=== PATIENT | female | born 1990 | race Caucasian/White ===

== ENCOUNTER 2019-10-27 15:24 | Outpatient (REF) | payer MEDICAID, SELFPAY ==
[2019-10-27 17:22] LABS: HCT 38.7 % (36.0-46.0); HGB 12.9 g/dL (11.2-15.7); MCH 31.1 pg (27.0-33.0); MCHC 33.3 % (32.0-36.0); MCV 93.3 fL (80-95); Platelet Count 237 10^3/uL (130-400); RBC 4.15 10^6/uL (3.93-5.22); RDW 11.1 % (11.7-14.6); RDW-SD 37.4 fL; WBC 5.09 10^3/uL (4.4-10.8)
[2019-10-27 17:44] LABS: ALT 19 U/L (14-59); AST 16 U/L (15-37); Albumin 4.2 g/dL (3.4-5.0); Alkaline Phosphatase 53 U/L (46-116); Anion Gap 9.5 mmol/L (3-11); BUN 15 mg/dL (7-18); Bilirubin, Total 0.6 mg/dL (0.2-1.0); CO2 26.5 mmol/L (21.0-32.0); CREATININE 1.01 mg/dL (0.55-1.02); Chloride 102 mmol/L (98-107); Glucose 90 mg/dL (74-106); Potassium 3.7 mmol/L (3.5-5.1); Sodium 138 mmol/L (136-145); TSH (W/Ref FT4) 1.74 uIU/mL (0.36-3.74)
== END 2019-10-27 15:44 ==
LOC: NCHCN 15:24
PROVIDERS: PCP Nurse Practitioner Family; Visit Provider Nurse Practitioner Family
DX: R55 Syncope and collapse (principal); R53.83 Other fatigue
CPT/HCPCS: 80053; 85027; 84443

== ENCOUNTER 2020-01-11 10:54 | Outpatient (CLI) | payer MEDICAID, SELFPAY ==
--- NOTE | 2020-02-02 08:32 | W.ZIOMONITOR ---
Date of service: 02/02/20 Time of Service: 08:32 [employer] Day [employer] Spanish [employer] Referring Provider:: Hien Low Indications:: Near syncope Note: This is a 14-day air sampling and monitoring reportedly ordered for symptoms of near syncope Rhythm throughout was sinus. Average heart rate was 78 bpm. Minimum was 49, maximum 159 There were no ventricular dysrhythmias There were rare atrial premature beats There was no atrial fibrillation, no pauses greater than 3 seconds, no supraventricular tachycardia Multiple patient events corresponded to sinus rhythm and sinus tachycardia
== END 2020-01-11 11:14 ==
PROVIDERS: PCP Nurse Practitioner Family; Visit Provider Nurse Practitioner
DX: R55 Syncope and collapse (principal)
CPT/HCPCS: 0296T

== ENCOUNTER 2020-01-29 16:19 | Outpatient (REF) | payer MEDICAID, SELFPAY ==
[2020-01-29 20:09] LABS: Abs Immature Grans 0.01 10^3/uL (0.0-0.06); Absolute Basophil Count 0.04 10^3/uL (0.0-0.2); Absolute Eosinophil Count 0.02 10^3/uL (0.0-0.7); Absolute Monocyte Count 0.52 10^3/uL (0.1-0.8); Absolute Neutrophil Count 4.24 10^3/uL (1.2-6.7); Basophils % 0.6; Eosinophils % 0.3; HCT 39.1 % (36.0-46.0); HGB 13.4 g/dL (11.2-15.7); Immature Grans % 0.2; Lymphocytes % 22.5; MCH 31.8 pg (27.0-33.0); MCHC 34.3 % (32.0-36.0); MCV 92.9 fL (80-95); MPV 11.4 fL (8.0-11.0); Monocytes % 8.3; Neutrophils % 68.1; Nucleated RBC 0 %; Platelet Count 210 10^3/uL (130-400); RBC 4.21 10^6/uL (3.93-5.22); RDW 10.8 % (11.7-14.6); RDW-SD 36.4 fL; WBC 6.23 10^3/uL (4.4-10.8)
[2020-01-29 20:37] LABS: ALT 16 U/L (14-59); AST 15 U/L (15-37); Albumin 4.3 g/dL (3.4-5.0); Alkaline Phosphatase 44 U/L (46-116); Anion Gap 9.4 mmol/L (3-11); BUN 12 mg/dL (7-18); Bilirubin, Total 0.6 mg/dL (0.2-1.0); CO2 24.6 mmol/L (21.0-32.0); Chloride 104 mmol/L (98-107); Glucose 90 mg/dL (74-106); Potassium 4.2 mmol/L (3.5-5.1); Sodium 138 mmol/L (136-145)
[2020-01-31 17:25] LABS: SARS-CoV-2 RNA Not Detected (NotDetected); SARS-CoV-2 RNA Source Nasal/Nares
== END 2020-01-29 16:39 ==
LOC: NCHCN 16:19
PROVIDERS: PCP Nurse Practitioner Family; Visit Provider Nurse Practitioner Family
DX: U07.1 COVID-19 (principal); R53.83 Other fatigue
CPT/HCPCS: 80053; U0003; 85025

== ENCOUNTER 2020-02-13 12:14 | Outpatient (REF) | payer MEDICAID, SELFPAY ==
[2020-02-13 18:28] LABS: Bilirubin Negative (Negative); Blood Trace-intact (Negative); Clarity Clear (Clear); Glucose Negative (Negative); Ketones Negative (Negative); Leukocyte Esterase Small (Negative); Nitrite Negative (Negative); Specific Gravity 1.015 (1.005-1.025); Urobilinogen 0.2 EU/dL (Up TO 0.2); pH 7.5 (5-8)
[2020-02-13 19:19] LABS: Bacteria Negative HPF (Negative); C & S Indicated? Yes; Casts Negative LPF (Negative); Crystals Negative HPF (Negative); Epithelial Cells Few HPF (Negative); Mucus Negative (Negative); Other Cells Negative (Negative); WBC 20-50 HPF (0-5)
== END 2020-02-13 12:34 ==
LOC: NCHCN 12:14
PROVIDERS: PCP Nurse Practitioner; Visit Provider Physician Assistant
DX: R30.0 Dysuria (principal)
CPT/HCPCS: 87077; 81003; 81015; 87086; 87186

== ENCOUNTER 2020-07-11 01:20 | Outpatient (CLI) | payer MEDICAID, SELFPAY ==
--- NOTE | 2020-07-11 13:51 | DI.US_ITS ---
APPROVED REPORT EXAM: Comprehensive 2D, Doppler, and color-flow Echocardiogram Patient Location: Out-Patient [employer] Field Technician: Yasemin Christianson RDCS (AE) Indications: Dyspnea on exertion Other Information Study Quality: Excellent Conclusion Normal left ventricular wall thickness and chamber size. Estimated ejection fraction is 60 to 65%. Wall motion is normal Normal right ventricular size and systolic function Both atria are normal in size There is no significant valvular disease Wall motion Left Ventricle The left ventricle is normal size. The left ventricular systolic function is normal. The left ventric ular ejection fraction is within the normal range. There is normal left ventricular wall thickness. T here is normal LV segmental wall motion. There is no ventricular septal defect visualized. LVEF is 62 %. Right Ventricle The right ventricle is normal size. The right ventricular systolic function is normal. The RVSP is 19 .1 mmHg. Atria The left atrium size is normal. The right atrium size is normal. The interatrial septum is intact wit h no evidence for an atrial septal defect. Aortic Valve The aortic valve is normal in structure. Aortic valve is trileaflet. There is no aortic valvular sten osis. No aortic regurgitation is present. Mitral Valve The mitral valve is normal in structure. No evidence of mitral valve stenosis. Trace mitral regurgita tion. Tricuspid Valve The tricuspid valve is normal in structure. There is no tricuspid valve stenosis. Trace to mild tricu spid regurgitation. Pulmonic Valve The pulmonary valve is normal in structure. There is no pulmonic valvular stenosis. Trace pulmonic re gurgitation. Great Vessels The aortic root is normal in size. The ascending aorta is normal in size. Aortic arch is normal in ca liber. IVC is normal in size and collapses >50% with inspiration. Pericardium There is no pericardial effusion. 2D Dimensions IVSD d PLAX 0.70 cm F: 0.6-1.0 LV Vol A2C d MOD 115.4 mL LVPW d PLAX 0.74 cm F: 0.6 - 1.0 LV Vol A4C d MOD 107.8 mL LVID d PLAX 4.90 cm F: 3.8 - 5.2 LA vol/ BSA A2C s A-L 16.0 mL/m2 LVDs 3.15 cm F: 2.2 - 3.5 LA vol/ BSA A4C s A-L 18.1 mL/m2 Ao Root d 2.60 cm F: 2.7 - 3.3 LA Vol/ BSA Biplane s A-L 18.0 mL/m2 RA Area A4C 13.46 cm2 LA Area A4C s MOD 14.08 cm2 RA Vol/ BSA A4C s A-L 17.4 mL/m2 LA Area A2C s MOD 12.51 cm2 Ao Asc Diam d 2.86 cm F: 2.3 - 3.1 LV EF A4C MOD 61.1 % LV EF Teichholz 64.0 % LV EF A2C MOD 62.4 % LVEF (Rai's) 61.71 % F: 54 - 74 LV EF Biplane MOD 61.7 % LV Volume 86.46 mL F: 46 - 106 SV 69.89 mL LV Volume Index 45.50 mL/m2 F: 29 - 61 SV Index 36.82 mL/m2 LV Vol Biplane MOD 113.3 mL FS 34.95 % M-Mode TAPSE 2.49 cm (M/F) >1.7 LV Diastology MV E' medial 0.163 (>0.07 m/s) E/A Ratio 1.5 LV E/e MED 6.15 (<14) MV E Vmax 1.00 (0.4-1.3 m/s) MV E' lateral 0.181 (>0.1 m/s) MV A Vmax 0.65 (0.4-1.3 m/s) LV E/e LAT 5.50 (<14) MV E/A Ratio 1.50 MV E/E' medial 6.18 MV E/E' lateral 5.55 Aortic Valve LVOT Area 2.87 cm2 AoV Area Vmax 2.40 cm2 LVOT Vmax 1.22 m/s AoV Area/ BSA (Vmax) 1.26 cm2/m2 LVOT Mean Nba. 0.78 m/s ROLANDO Mean Nba. 2.36 cm2 LVOT Peak Grad 5.9 mmHg ROLANDO Mean Nba. Index 1.24 cm2/m2 LVOT Mean Grad 2.9 mmHg LVOT VTI 0.285 m LVOT Diam s 1.90 cm AoV Vmax 1.46 m/s Velocity Ratio 0.83 AoV Mean Nba. 0.95 m/s AoV Peak Grad 8.5 mmHg LVOT SV 81.96 mL AoV Mean Grad 4.2 mmHg AoV VTI 0.284 m AoV Area VTI 2.88 cm2 AoV Area/ BSA (VTI) 1.52 cm/m2 Mitral Valve MV DT 200 (160-240 msec) MV PHT 58 msec MV Area PHT 3.79 cm2 MV VTI 0.290 m MV Area VTI 2.83 (4.0-6.0 cm2) Pulmonary Valve PV Vmax 0.98 (0.5-1.5 m/s) RVOT Peak Gr. 2.64 mmHg PV Peak Grad 3.8 mmHg RVOT Mean Gr. 1.40 mmHg PV Mean Grad 2.0 mmHg RVOT VTI 0.195 m PV VTI 0.218 m RVOT Vmax 0.81 m/s Tricuspid Valve TR Peak Grad 16.0 mmHg TR Vmax 2.00 m/s RA Pressure 3.00 mmHg RVSP (TR) 19.1 mmHg
== END 2020-07-11 01:40 ==
PROVIDERS: PCP Physician Assistant; Visit Provider Physician Assistant
DX: R06.09 Other forms of dyspnea (principal)
CPT/HCPCS: 93306

== ENCOUNTER 2020-10-25 15:56 | Outpatient (CLI) | payer MEDICAID, SELFPAY ==
--- NOTE | 2020-10-25 | DI.US_ITS ---
Exam(s) US RENAL EXAM: US RENAL CLINICAL HISTORY: RENAL COLIC, N23. TECHNIQUE: Lu scale, color and spectral Doppler were used. COMPARISON: No exams were available for comparison FINDINGS: Renal size in cm: Right: 11.0. Left: 11.0. Echogenicity: Normal. Hydronephrosis: No. Cyst or mass: No. Nephrolithiasis: No. Other findings: None. Bladder:Normal. Ureteral jets: Right: Visualized and unremarkable. Left: Visualized and unremarkable. Prevoid vol:383 cc Postvoid vol:0 cc Renal color flow: Symmetric and within normal limits. IMPRESSION: Unremarkable examination. DATA REPOSITORY:
== END 2020-10-25 16:16 ==
PROVIDERS: PCP Physician Assistant; Visit Provider Physician Assistant Medical
DX: N23 Unspecified renal colic (principal)
CPT/HCPCS: 76770; 87086

== ENCOUNTER 2021-04-11 04:47 | Outpatient (REF) | payer SELFPAY ==
--- NOTE | 2021-04-11 16:17 | W.PFT ---
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 Impression Normal spirometry Clinical Correlation therefore is recommended.
== END 2021-04-11 04:48 | disposition home or self-care (01) ==
LOC: RT 04:47
PROVIDERS: PCP Physician Assistant; Visit Provider Nurse Practitioner Family
DX: Z02.1 Encounter for pre-employment examination (principal); Z86.16 Personal history of COVID-19; Z87.09 Personal history of other diseases of the respiratory system
CPT/HCPCS: 94010

== ENCOUNTER 2021-04-18 01:41 | Outpatient (REF) | payer SELFPAY ==
[2021-04-21 13:42] LABS: TB Interpretation Negative (Negative)
== END 2021-04-18 01:42 | disposition home or self-care (01) ==
LOC: LBO 01:41
PROVIDERS: Nurse Practitioner Family; PCP Physician Assistant; Visit Provider Nurse Practitioner Family
DX: Z02.1 Encounter for pre-employment examination (principal)
CPT/HCPCS: 86480

== ENCOUNTER 2021-05-20 17:25 | Outpatient (REF) | payer MEDICAID, SELFPAY ==
[2021-05-20 19:29] LABS: ESR 1 mm/hr (0-20)
[2021-05-20 19:44] LABS: Anion Gap 9.6 mmol/L (3-11); BUN 14 mg/dL (7-18); CO2 24.4 mmol/L (21.0-32.0); CREATININE 1.1 mg/dL (0.55-1.02); Chloride 104 mmol/L (98-107); Estimated GFR 58.72 (mL/min/1.73m2); Glucose 86 mg/dL (74-106); Potassium 3.8 mmol/L (3.5-5.1); Sodium 138 mmol/L (136-145)
[2021-05-20 19:55] LABS: Creatine Kinase 107 U/L (26-192)
== END 2021-05-20 17:26 | disposition home or self-care (01) ==
LOC: NCHCN 17:25
PROVIDERS: PCP Physician Assistant; Visit Provider Family Medicine
DX: M79.10 Myalgia, unspecified site (principal)
CPT/HCPCS: 80048; 82550; 85652; 83735

== ENCOUNTER 2021-07-27 11:12 | Emergency (ER) | payer MEDICAID, SELFPAY ==
--- NOTE | 2021-07-27 11:00 | RT.EKG_ITS ---
APPROVED REPORT Exam: Resting ECG Reason for Exam: chest pain Patient Location: E HR:71 bpm ECG Measurements Heart Rate 71 AXIS MO 147 P 76 QRSd 84 QRS 78 QT 387 T 71 QTc 421 Conclusion Sinus rhythm...normal P axis, V-rate 60- 99. Sinus. Normal axis. No STEMI. I have reviewed and interpreted ECG and agree with software generated interpretation.
--- NOTE | 2021-07-27 11:13 | W.ED.GENAD ---
Discharge Plan Disposition Patient Disposition: HOME Condition: Improving Discharge Details Clinical Impression: Chronic chest pain Primary Care Provider: Bryn Chandler ED Provider: Bridget Devi Home Meds and New Rx's Prescriptions: Continued melatonin 5 mg tablet 5 mg PO HS PRN Vyvanse 10 mg capsule 10 mg PO DAILY propranolol 10 mg tablet 10 mg PO BID Qty: 60 3RF prochlorperazine maleate 5 mg tablet 5 mg PO TID PRN (Reason: nausea and headaches) Qty: 30 3RF Rx Instructions: Take every 8 hours as needed for headaches and nausea omeprazole 20 mg capsule,delayed release(DR/EC) 20 mg PO DAILY Qty: 42 0RF Rx Instructions: take 1/2 - 1 hr before meal Emgality Pen 120 mg/mL pen injector 120 mg subcut QMONTH sumatriptan succinate [Imitrex STATdose Pen] subcut magnesium oxide 400 mg (241.3 mg magnesium) tablet 400 mg PO BID PNV cmb#95-ferrous fumarate-FA [ Multivitamins] PO cholecalciferol (vitamin D3) 125 mcg (5,000 unit) capsule 125 mcg PO .Q OTHER DAY tumeri PO X-Vvjxwy-A-Cysteine PO cranberry extract PO PRN multivitamin Tablet 1 tab PO DAILY escitalopram oxalate [Lexapro] 10 mg tablet 10 mg PO DAILY gabapentin 300 mg capsule See Rx Instructions PO QHS Qty: 90 5RF Rx Instructions: Take 600 PO every day at bedtime and BID as needed for headaches. Discharge Instructions Instructions: Chest Pain (ED) Additional Instructions: Your lab work, EKG and imaging today is reassuring and shows no evidence of acute concerning or significant findings. Drink plenty of fluids and get plenty of rest. Continue your regular medications as directed. You can try [id number] Tylenol and Pepcid for your symptoms as needed and directed. Follow-up with your primary care doctor and asparagus cutter for reevaluation and consideration for referral for outpatient broadcast transmitter operator and/or echocardiogram if indicated. Return immediately to the emergency department if you develop any worsening or new concerning symptoms. Discharge Data Discharge Date/Time-TO BE ENTERED AT DEPARTURE: 07/27/21 14:58 Discharge Physician: Bridget Devi Medical Decision Making 1130 -- 30-year-old female with a history of migraines, anxiety, depression, long-haul COVID with a diagnosis of POTS status post COVID presents for chronic chest pain for the past 2 years since her diagnosis of COVID in May 2019, worse over the past 2 weeks and worse this morning. Vitals within normal limits. EKG notes a rate of 71, sinus, normal axis and no STEMI. Patient appears comfortable and nontoxic. She has mild reproducible anterior chest pain. She has no focal deficits. History and presentation does not appear consistent with PE, ACS, dissection or pneumonia. Discussed that her symptoms could be secondary to long COVID. Differential diagnose also includes anxiety, dehydration, arrhythmia, electrolyte abnormality, GI etiology. Will obtain screening labs, give Pepcid, Toradol, Ativan IV, bolus IV fluids and chest x-ray and reassess. 1345 --labs and imaging reviewed and unremarkable. Troponin negative. Lipase normal. D-dimer within normal limits. Chest x-ray negative. Patient reassessed and her pain is improved and she feels comfortable going home. Discussed with patient and that she needs close follow-up with her primary care doctor and asparagus cutter for reevaluation and consideration for repeat outpatient broadcast transmitter operator and/or echocardiogram for further evaluation if her symptoms persist or worsen. Usual and customary return precautions given prior to discharge. Medical Records Medical records reviewed: Yes I reviewed the patient's medical records. Imaging Data Radiologic Study: Radiologist's impression: XR Chest Exam date and time: 07/27/2021 1:37 PM Age: 30 years old Clinical indication: Pain; Chest pressure TECHNIQUE: Imaging protocol: XR of the chest. Views: 2 views. COMPARISON: No relevant prior studies available. FINDINGS: Airway: Patent Lungs: Unremarkable. No consolidation. Pleural spaces: Unremarkable. No pleural effusion. No pneumothorax. Heart/Mediastinum: Unremarkable. No cardiomegaly. Bones/joints: No acute skeletal abnormality or aggressive osseous lesion.? IMPRESSION: No acute findings. Lab Data Lab results reviewed: Yes I reviewed the patient's lab results. Labs: Laboratory Tests Range/Units 07/27/21 07/27/21 07/27/21 12:30 12:30 12:30 WBC (4.4-10.8) 10^3/uL 4.37 L RBC (3.93-5.22) 10^6/uL 4.24 Hgb (11.2-15.7) g/dL 13.1 Hct (36.0-46.0) % 39.5 MCV (80-95) fL 93 MCH (27.0-33.0) pg 30.9 MCHC (32.0-36.0) % 33.2 RDW (11.7-14.6) % 10.9 L Plt Count (130-400) 10^3/uL 198 MPV (8.0-11.0) fL 9.9 Immature Gran % 0.2 Neutrophils % 54.7 Lymphocytes % 34.3 Monocytes % 9.2 Eosinophils % 0.9 Basophils % 0.7 Nucleated RBC % (0.0-0.3) % 0.0 Absolute Neutrophils (1.2-6.7) 10^3/uL 2.39 Absolute Lymphocytes (1.2-3.4) 10^3/uL 1.50 Absolute Monocytes (0.1-0.8) 10^3/uL 0.40 Absolute Eosinophils (0.0-0.7) 10^3/uL 0.04 Absolute Basophils (0.0-0.2) 10^3/uL 0.03 D-Dimer (<500) ng/mlFEU 192 Sodium (136-145) mmol/L 137 Potassium (3.5-5.1) mmol/L 4.3 Chloride (98-107) mmol/L 105 Carbon Dioxide (21.0-32.0) mmol/L 26.0 Anion Gap (3-11) mmol/L 6.0 BUN (7-18) mg/dL 11 Creatinine (0.55-1.02) mg/dL 0.9 Estimated GFR/1.73 m2 (mL/min/1.73m2) >= 60.00 Glucose (74-106) mg/dL 87 Calcium (8.5-10.1) mg/dL 8.6 Magnesium (1.8-2.4) mg/dL 1.8 Total Bilirubin (0.2-1.0) mg/dL 0.5 AST (15-37) U/L 10 L ALT (14-59) U/L 15 Alkaline Phosphatase (46-116) U/L 45 L Troponin I (<or=60) ng/L < 50 Total Protein (6.4-8.2) g/dL 6.8 Albumin (3.4-5.0) g/dL 4.0 Lipase (73-393) U/L 160 ECG Data Attestation: I personally reviewed and interpreted this ECG (s) as follows: Interpretation: rate of 71, sinus, normal axis, no stemi. HPI General Date/Time Provider Initiated Documentation: 07/27/21 11:13. Limitations to Documentation: no limitations. Information obtained by: patient. HPI Narrative: Patient is a 30-year-old female with a history of anxiety, depression, headaches, POTS who presents for intermittent chest pain for the past 2 weeks, with 2 episodes where the chest pain has been worse, one occurring 2 weeks ago and 1 this morning at 3 AM that awoke her from sleep. She states she has had chronic chest pain since first being diagnosed with COVID-19 in May 2019. She states she has had 2 additional acute COVID infection and has been diagnosed with postural orthostatic tachycardia syndrome and is taking propranolol per the postacute COVID syndrome clinic at [facility]. She states she has had ongoing chest pain since May 2019 but states it has been worse over the past 2 weeks. She states she has had cardiac monitors which noted sinus tachycardia but she has not had an echocardiogram. She states the pain today is similar to her usual pain but more intense and constant. She states the chest pain is substernal, constant, sharp and 8/10. She states she does have right-sided neck pain but feels it is not radiating from her chest and is worse with movement and 8/10. She states she does have aching left arm pain which is 6/10. She took Pepto-Bismol and Zantac at home this morning without relief. She states she was on Topamax for her headaches and experienced a 30 pound weight loss over 3 months due to decreased appetite but states she has not had any change in her appetite since stopping medication 1 month ago. She states since her diagnosis of COVID with chest pain she variances chest pain that occurs with exertion and associated with shortness of breath and dizziness. She denies any fever, cough, nausea, vomiting, diarrhea. She states the chest pain is not related to food. Related Data Home Medications Medication Instructions Recorded Confirmed multivitamin 1 tab PO DAILY 02/28/20 07/27/21 escitalopram oxalate 10 mg tablet 10 mg PO DAILY 04/10/20 07/27/21 (Lexapro) melatonin 5 mg tablet 5 mg PO HS PRN 04/10/20 07/27/21 lisdexamfetamine 10 mg capsule 10 mg PO DAILY 12/10/20 07/27/21 (Vyvanse) propranolol 10 mg tablet 10 mg PO BID #60 tabs 12/10/20 07/27/21 gabapentin 300 mg capsule See Rx Instructions PO QHS #90 caps 03/24/21 07/27/21 prochlorperazine maleate 5 mg 5 mg PO TID PRN nausea and 04/03/21 07/27/21 tablet headaches #30 tabs omeprazole 20 mg capsule,delayed 20 mg PO DAILY #42 caps 04/23/21 07/27/21 release P-Rqafbu-M-Cysteine PO 07/16/21 07/16/21 PNV cmb#95-ferrous fumarate-FA PO 07/16/21 07/16/21 [ Multivitamins] cholecalciferol (vitamin D3) 125 125 mcg PO .Q OTHER DAY 07/16/21 07/27/21 mcg (5,000 unit) capsule cranberry extract PO PRN 07/16/21 07/16/21 galcanezumab-gnlm 120 mg/mL 120 mg subcut QMONTH 07/16/21 07/27/21 subcutaneous pen injector (Emgality Pen) magnesium oxide 400 mg (241.3 mg 400 mg PO BID 07/16/21 07/27/21 magnesium) tablet sumatriptan succinate [Imitrex subcut 07/16/21 07/16/21 STATdose Pen] tumeri PO 07/16/21 07/16/21 Previous Rx's Medication Instructions Recorded propranolol 10 mg tablet 10 mg PO BID #60 tabs 12/10/20 gabapentin 300 mg capsule See Rx Instructions PO QHS #90 caps 03/24/21 prochlorperazine maleate 5 mg 5 mg PO TID PRN nausea and 04/03/21 tablet headaches #30 tabs omeprazole 20 mg capsule,delayed 20 mg PO DAILY #42 caps 04/23/21 release Allergies Allergy/AdvReac Type Severity Reaction Status Date / Time Penicillins Allergy Mild Verified 07/27/21 11:19 NSAIDS (Non-Steroidal AdvReac Mild neurology Unverified 07/27/21 11:20 Anti-Inflamma does not want her using nsaids General Stated Complaint: Chest Pain Review of Systems All systems reviewed & are unremarkable except as noted in HPI and below Constitutional Constitutional: Denies chills, Denies excessive sweating, Denies fatigue, Denies fever(s), Denies weakness and Denies weight loss Eyes Eyes: Reports system reviewed and no additional complaints, except as documented and Denies blurry vision ENT Ears, Nose, Mouth, and Throat: Denies vertigo, Denies dizziness, Denies otalgia, Denies nasal congestion, Denies sore throat and Denies throat swelling Cardiovascular Cardiovascular: Reports chest pain, Denies syncope, Denies rapid heart rate and Denies dyspnea Respiratory Respiratory: Denies chest congestion, Denies cough, Denies pain on inspiration and Denies dyspnea Gastrointestinal Gastrointestinal: Denies abdominal pain, Denies diarrhea and Denies vomiting Genitourinary Genitourinary: Denies hematuria, Denies dysuria and Denies flank pain Musculoskeletal Musculoskeletal: Denies back pain and Denies joint swelling Integumentary/Breasts Skin/Breast: Denies lesions and Denies rash Neurologic Neurologic: Denies behavioral changes, Denies confusion, Denies vertigo, Denies dizziness, Denies syncope, Denies localized weakness and Denies weakness Psychiatric Psychiatric: Denies behavioral changes, Denies confusion and Denies depression Endocrine Endocrine: Denies excessive sweating and Denies fatigue Hematologic/Lymphatic Hematologic/Lymphatic: Denies easy bruising and Denies lymphadenopathy Allergic/Immunologic Allergic/Immunologic: Denies throat swelling PFSH All Active Problems (Updated 07/27/21 @ 14:48 by Bridget Devi DO) Chronic chest pain (Acute) Pharyngeal dysphagia (Acute) Dysfluency (Acute) COVID-19 long hauler (Acute) Chest pain (Acute) Speech and language disorder (Acute) Speech abnormality (Acute) Cognitive changes (Acute) Depression (Chronic) POTS (postural orthostatic tachycardia syndrome) (Acute) Frequent headaches (Acute) Medical History Anxiety Bronchitis Social History Smoking/Tobacco Use Status: Never Smoking risk assessment performed?: Yes Alcohol Intake: former Drug use: Current Sobriety Household members: significant other Housing: apartment Number of Children: 0 current occupation: unemployed Pets and animals: Yes Pets and animals: cat(s) and dog(s) What is your relationship status?: living with partner Panel score (0-1 are the most socially isolated patients): 1 What type of physical activity do you participate in: walking and yoga Seatbelt use: always Do you feel safe at home: Yes Do you feel safe in your relationship?: Yes Exam Const General: cooperative and healthy appearing Orientation: alert, awake and oriented x3 HENMT Head: normal to inspection Ears: hearing grossly normal bilaterally, external ears normal and TM's normal bilaterally General nose exam: external nose normal Face and sinus: normal facial exam Mouth: oral mucosae normal Teeth and gingiva: dentition normal Throat: posterior oropharynx normal Eyes General: appearance normal, both eyes and all related structures Eyelids: eyelids normal Pupils: PERRL EOM: EOM intact bilaterally Neck Neck: normal visual inspection Lymphatic: no lymphadenopathy noted Chest Chest: normal inspection of the chest Chest/axillae images: 1. Mildly tender to palpation. No rash, erythema, ecchymoses, edema or lesions. Resp Effort & Inspection: normal respiratory effort and able to speak in complete sentences Auscultation: clear to auscultation bilaterally Cardio Rate: regular rate Rhythm: regular rhythm GI Inspection: normal to inspection Palpation: soft, not firm, no guarding, no hepatosplenomegaly, no masses and nontender Auscultation: normal bowel sounds Back/Spine/Pelvis Back: no CVA tenderness Skin General skin exam: no rashes or lesions noted Neuro General: patient alert and patient awake Cognition: normal cognition Speech: speech normal Gait: normal gait Motor: muscle tone normal throughout Sensory Exam: no sensory deficits noted Extrem General: normal to inspection, full ROM and capillary refill normal Psych Appearance: grossly normal Mental Status: mental status grossly normal Speech and Movement: speech and movement normal Affect: normal affect Thought Process: normal
[2021-07-27 11:15] VITALS: BP 108/67; PULSE 70; RESP 12; TEMP 37.1; O2SAT 98
--- NOTE | 2021-07-27 12:00 | DI.RAD_ITS ---
Exam(s) XR CHEST 2V PA LATERAL EXAM: XR CHEST 2V PA LATERAL CLINICAL HISTORY: chest pain, r/o acute disease. TECHNIQUE: 2D digital imaging was performed. COMPARISON: No exams were available for comparison FINDINGS: 2 views: Heart size is normal. The mediastinum is not widened. Lungs are clear. No infiltrates nor pleural effusions. IMPRESSION: No acute pulmonary findings. DATA REPOSITORY: RADIATION DOSE DELIVERED:
[2021-07-27] MEDS: LORazepam 2 MG/ML VIAL 0.5 MG IVP (12:36)
[2021-07-27 12:44] LABS: Abs Immature Grans 0.01 10^3/uL (0.0-0.06); Absolute Basophil Count 0.03 10^3/uL (0.0-0.2); Absolute Eosinophil Count 0.04 10^3/uL (0.0-0.7); Absolute Neutrophil Count 2.39 10^3/uL (1.2-6.7); Basophils % 0.7; Eosinophils % 0.9; HCT 39.5 % (36.0-46.0); HGB 13.1 g/dL (11.2-15.7); Immature Grans % 0.2; Lymphocytes % 34.3; MCH 30.9 pg (27.0-33.0); MCHC 33.2 % (32.0-36.0); MCV 93 fL (80-95); MPV 9.9 fL (8.0-11.0); Monocytes % 9.2; Neutrophils % 54.7; Platelet Count 198 10^3/uL (130-400); RBC 4.24 10^6/uL (3.93-5.22); RDW 10.9 % (11.7-14.6); WBC 4.37 10^3/uL (4.4-10.8)
[2021-07-27] MEDS: Ketorolac 30 MG/ML VIAL IVP (12:52)
[2021-07-27] MEDS: Famotidine 20 MG/2 ML VIAL IVP (12:52)
[2021-07-27] MEDS: Normal Saline 1,000 ML 1000 ML IV (12:55)
[2021-07-27 13:00] LABS: ALT 15 U/L (14-59); AST 10 U/L (15-37); Alkaline Phosphatase 45 U/L (46-116); BUN 11 mg/dL (7-18); Bilirubin, Total 0.5 mg/dL (0.2-1.0); CREATININE 0.9 mg/dL (0.55-1.02); Calcium 8.6 mg/dL (8.5-10.1); Chloride 105 mmol/L (98-107); Glucose 87 mg/dL (74-106); Lipase 160 U/L (73-393); Magnesium 1.8 mg/dL (1.8-2.4); Potassium 4.3 mmol/L (3.5-5.1); Sodium 137 mmol/L (136-145); Total Protein 6.8 g/dL (6.4-8.2); Troponin I < 50 ng/L (<or=60)
[2021-07-27 13:07] VITALS: BP 102/59; PULSE 60; RESP 16; TEMP 36.3; O2SAT 100
[2021-07-27 13:14] LABS: D-Dimer 192 ng/mlFEU (<500)
--- NOTE | 2021-07-27 14:01 | DI.VRAD_ITS ---
PROCEDURE INFORMATION: Exam: XR Chest Exam date and time: 07/27/2021 1:37 PM Age: 30 years old Clinical indication: Pain; Chest pressure TECHNIQUE: Imaging protocol: XR of the chest. Views: 2 views. COMPARISON: No relevant prior studies available. FINDINGS: Airway: Patent Lungs: Unremarkable. No consolidation. Pleural spaces: Unremarkable. No pleural effusion. No pneumothorax. Heart/Mediastinum: Unremarkable. No cardiomegaly. Bones/joints: No acute skeletal abnormality or aggressive osseous lesion. IMPRESSION: No acute findings. Dictated and Authenticated by: Syd Monaco MD. Ordering:VIDAL Gill MD
[2021-07-27 14:20] VITALS: BP 102/59; PULSE 60; RESP 16; TEMP 36.5; O2SAT 100
== END 2021-07-27 14:58 | disposition home or self-care (01) ==
PROVIDERS: Emergency Provider Physician Assistant; PCP Physician Assistant
DX: R07.9 Chest pain, unspecified (principal); G89.29 Other chronic pain
CPT/HCPCS: 80053; 81025; 83690; 93005; 96361; 96374; 96375; 99284; 71046; 83735; 84484; 85025; 85379; 93010; J1885; J2060

== ENCOUNTER 2021-08-07 03:36 | Outpatient (CLI) | payer MEDICAID, SELFPAY ==
--- NOTE | 2021-08-07 11:00 | NS.NUTBLAN_ITS ---
Radha was referred to nutritional counseling for unintensional weight loss, fatigue and malaise. 5'10 140 BMI: 19 Usual Weight: 160-170 lbs. Estimated Needs: 4344-7881 kcal, 60-65 g protein, 1900 ml fluid Meds: Vyvance, lexapro, prisolec, imitrex, clonazepam, gabapentin, MVI, 400 mg magnesium, Vit D Diet Recall: breakfast sandwich, pizza, salad with chicken, snacks; crackers. Drinks 3 water bottles daily - 64 oz. Lactose intolerant. Average caloric intake: 6067-1890 kcal, 50 g protein. Meeting 100% nutrient and fluid needs. Radha reports that since getting covid in 2020, she has had several ailments including fatigue, migraines, muscle pain, depression, heart burn and lost about 30 lbs. She has been diagnosed with Pots Disease, Depression, has digestive issues including constipation and diarrhea (? IBS). Lymes Dx has been ruled out. She has a hx of disordered eating in high school- binge eating at times, restricting at times. This is the lowest weight she has had as adult. She is being treated for depression. She is here to learn how to eat better for weight gain. Current intake should be adequate to regain weight as Radha is sedentary- unclear why Radha keeps losing weight. Session today focused on establishing goals and strategies for weight gain. Current Magnesium intake of 400 mg per day may create looser stools but body will adjust. Radha will follow up weekly with goal weigh to 155 lbs. Radha to start keeping a food diary and aim for 2500 kcal per day. May need to increase caloric intake until able to regain weight. Low weight may be contributing to fatigue. Follow up planned for 08/15/21 2 pm.
== END 2021-08-07 03:37 | disposition home or self-care (01) ==
PROVIDERS: PCP Physician Assistant; Visit Provider Dietitian, Registered
DX: R63.4 Abnormal weight loss (principal); R53.83 Other fatigue; R53.81 Other malaise; Z71.3 Dietary counseling and surveillance; Z86.16 Personal history of COVID-19
CPT/HCPCS: 97802

== ENCOUNTER 2021-08-13 04:19 | Outpatient (CLI) | payer MEDICAID, SELFPAY ==
--- NOTE | 2021-08-13 15:00 | NS.NUTBLAN_ITS ---
Radha returns for nutritional counseling for weight gain/wellness. She reports vomiting and being sick last week for 2 weeks. Possible food poisoning, poor po intake x 48 hours. Food Log: reviewed 4 days of food logs, avering about 5051-8501 kcal per day Weight: 139 lbs, BMI: 20 Has lost another lbs in last week Radha reports cycling between diarrhea and constipation and c/o malaise. Recently with vomiting and difficulty eating. She is currently taking proprananol for Pots Dx. Suspect digestive issues are affected by low blood pressure/circulation but may also be IBS. She also reports seeing undigested particles in her stools. Stools are dark (not black) in color and are not oily. Digestion issues started to occur post covid. Being followed by a Covid Specialist group at [facility]. Would recommend colonoscopy to r/o any disease, would also recommend rechecking thyroid function. It appears that since getting covid in 2020, that Radha has had lingering malaise with changes in her autonomic nervous system affecting her blood pressure and digestion. There may be some anxiety/depression that could lead to IBS symptoms and weight loss. She is treated with lexapro for depression and followed by a psychiatrist. Has hx of disordered eating. Radha to keep food and digestion diary for next 7 days. Follow up planned for 08/22/21 at 2pm. Caloric intake goal: 3558-5191 kcal. Plan: follow up with PCP re: digestion issues, may need colonoscopy follow up with PCP re: updated TSH, T3, T4 weekly wieght check with fiction writer
== END 2021-08-13 04:20 | disposition home or self-care (01) ==
LOC: DS 04:19
PROVIDERS: PCP Physician Assistant; Visit Provider Dietitian, Registered
DX: R63.4 Abnormal weight loss (principal); R53.81 Other malaise; Z86.16 Personal history of COVID-19; K92.89 Other specified diseases of the digestive system; Z71.3 Dietary counseling and surveillance
CPT/HCPCS: 97803

== ENCOUNTER 2021-08-19 13:30 | Outpatient (REF) | payer MEDICAID, SELFPAY ==
[2021-08-19 19:31] LABS: TSH 1.51 uIU/mL (0.36-3.74)
--- NOTE | 2021-08-22 14:59 | TELEFU_ITS ---
Date of service: 08/22/21 Time of Service: 14:59 Nutrition Note NOTE: Radha came for quick weight check before leaving for vacation. Wt: 141 lbs. Food diary indicates average po intake < 1300 calories due to malaise, stomach pain and migraines. Weight stable, BMI wnl. [place] [facility] [place] Not feeling any better. Will follow up after vacation. Time Spent in Nutritional Counseling and Treatment: 5
== END 2021-08-19 13:31 | disposition home or self-care (01) ==
LOC: NCHCN 13:30
PROVIDERS: PCP Physician Assistant; Visit Provider Physician Assistant
DX: R13.10 Dysphagia, unspecified (principal)
CPT/HCPCS: 84436; 84443

== ENCOUNTER 2021-09-12 11:03 | Outpatient (REF) | payer MEDICAID, SELFPAY | END 2021-09-12 11:04 | disposition home or self-care (01) | LOC: NCHCN 11:03 | PROVIDERS: PCP Physician Assistant; Visit Provider Physician Assistant | DX: R30.0 Dysuria (principal) | CPT/HCPCS: 87086 ==

== ENCOUNTER 2021-10-15 17:11 | Emergency (ER) | payer MEDICAID, SELFPAY ==
[2021-10-15] VITALS (9 sets, daily range): BP systolic 103–122; BP diastolic 59–70; PULSE 66–81; RESP 12–24; TEMP 36.6–36.9; O2SAT 95–100
--- NOTE | 2021-10-15 17:15 | RT.EKG_ITS ---
APPROVED REPORT Exam: Resting ECG Reason for Exam: dizzy Patient Location: E HR:68 bpm ECG Measurements Heart Rate 68 AXIS WV 135 P 74 QRSd 81 QRS 77 QT 380 T 67 QTc 403 Conclusion Sinus rhythm...normal P axis, V-rate 60- 99 Normal Electrocardiogram
[2021-10-15] MEDS: Lactated Ringers 1,000 ML 1000 ML IV (17:49)
--- NOTE | 2021-10-15 17:51 | ED.GENADUL_ITS ---
Discharge Plan Disposition Patient Disposition: HOME Condition: Stable Discharge Details Clinical Impression: Dizziness, Frequent loose stools Primary Care Provider: Bryn Chandler ED Provider: Jhoan Salvador Home Meds and New Rx's Prescriptions: Continued melatonin 5 mg tablet 10 mg PO HS PRN Vyvanse 10 mg capsule 10 mg PO DAILY prochlorperazine maleate 5 mg tablet 5 mg PO TID PRN (Reason: nausea and headaches) Qty: 30 3RF Rx Instructions: Take every 8 hours as needed for headaches and nausea Emgality Pen 120 mg/mL pen injector 120 mg subcut QMONTH sumatriptan succinate [Imitrex STATdose Pen] subcut magnesium oxide 400 mg (241.3 mg magnesium) tablet 400 mg PO BID PNV cmb#95-ferrous fumarate-FA [ Multivitamins] PO cholecalciferol (vitamin D3) 125 mcg (5,000 unit) capsule 125 mcg PO .Q OTHER DAY tumeri PO F-Rgsopa-Z-Cysteine PO cranberry extract PO PRN multivitamin Tablet 1 tab PO DAILY escitalopram oxalate [Lexapro] 10 mg tablet 10 mg PO DAILY omeprazole 20 mg capsule,delayed release(DR/EC) 20 mg PO DAILY PRN (Reason: Reflux) Qty: 42 3RF Rx Instructions: take 1/2 - 1 hr before meal if anticipated reflux propranolol 10 mg tablet 10 mg PO BID Qty: 60 3RF gabapentin 300 mg capsule See Rx Instructions PO QHS Qty: 90 5RF Rx Instructions: Take 600 PO every day at bedtime and BID as needed for headaches. Discharge Instructions Instructions: Acute Diarrhea (ED), Dizziness (ED) Additional Instructions: Please drink clear liquid fluid frequently in order to stay hydrated. Please contact your primary care physician to arrange follow-up. Return to the ER immediately for any worsening or new concerning symptoms. Referrals: Bryn Chandler [Primary Care Provider] - Discharge Data Discharge Date/Time-TO BE ENTERED AT DEPARTURE: 10/15/21 21:28 Medical Decision Making 1755 -- 30-year-old female with past disease here with presyncope after multiple episodes of diarrhea today. Patient appears clinically dehydrated. We will give IV fluid bolus. Consider electrolyte abnormalities and will check chemistry. Unclear etiology for loose stool today, I suspect it may be related to watermelon consumption as she has had similar in the past apparently. No known sick contacts or exposures. Considered arrhythmia. EKG was reviewed and interpreted by me: Sinus rhythm 68 bpm, normal intervals, nondiagnostic. -- Labs reviewed and nondiagnostic. Patient was given IV fluid rehydration and on reassessment had notable improvement. Plan for discharge with outpatient follow-up. Disposition decision was made weighing the risks and benefits of hospitalization versus outpatient treatment, the risk for further decompensation, and the patient's wishes. The patient was stable and requested discharge. Prior to discharge, my usual and customary return precautions were reviewed with the patient - this included follow-up instructions and reason to return to the emergency department if condition worsens, does not improve as expected, or other new concerns arise. Lab Data Lab results reviewed: Yes I reviewed the patient's lab results. Labs: Laboratory Tests Range/Units 10/15/21 10/15/21 10/15/21 17:49 17:49 20:30 WBC (4.4-10.8) 10^3/uL 7.27 RBC (3.93-5.22) 10^6/uL 4.14 Hgb (11.2-15.7) g/dL 13.2 Hct (36.0-46.0) % 38.6 MCV (80-95) fL 93 MCH (27.0-33.0) pg 31.9 MCHC (32.0-36.0) % 34.2 RDW (11.7-14.6) % 11.2 L Plt Count (130-400) 10^3/uL 242 MPV (8.0-11.0) fL 10.1 Immature Gran % 0.4 Neutrophils % 73.2 Lymphocytes % 17.7 Monocytes % 7.4 Eosinophils % 0.6 Basophils % 0.7 Nucleated RBC % (0.0-0.3) % 0.0 Absolute Neutrophils (1.2-6.7) 10^3/uL 5.32 Absolute Lymphocytes (1.2-3.4) 10^3/uL 1.29 Absolute Monocytes (0.1-0.8) 10^3/uL 0.54 Absolute Eosinophils (0.0-0.7) 10^3/uL 0.04 Absolute Basophils (0.0-0.2) 10^3/uL 0.05 Sodium (136-145) mmol/L 137 Potassium (3.5-5.1) mmol/L 4.5 Chloride (98-107) mmol/L 104 Carbon Dioxide (21.0-32.0) mmol/L 28.5 Anion Gap (3-11) mmol/L 4.5 BUN (7-18) mg/dL 13 Creatinine (0.55-1.02) mg/dL 0.9 Estimated GFR/1.73 m2 (mL/min/1.73m2) >= 60.00 Glucose (74-106) mg/dL 106 Calcium (8.5-10.1) mg/dL 9.0 Magnesium (1.8-2.4) mg/dL 1.9 Total Bilirubin (0.2-1.0) mg/dL 0.4 AST (15-37) U/L 14 L ALT (14-59) U/L 19 Alkaline Phosphatase (46-116) U/L 51 Troponin I (<or=60) ng/L < 50 Cancelled Total Protein (6.4-8.2) g/dL 7.0 Albumin (3.4-5.0) g/dL 4.0 HPI General Mode of arrival: ambulatory . Date/Time Provider Initiated Documentation: 10/15/21 17:29 . Limitations to Documentation: no limitations . Information obtained by: patient . HPI Narrative: 30yo female with POTS here with chief complaint of presyncope. Patient notes that she had a significant amount of diarrhea today, multiple episodes. Diarrhea started today. Yesterday she was feeling fine. This afternoon she felt lightheaded like she was going to pass out. She did drink a bunch of fluids but continues to have symptoms. Patient denies associated abdominal pain. She does note that she had watermelon yesterday and has had diarrhea after eating watermelon in the past. Related Data Home Medications Medication Instructions Recorded Confirmed multivitamin 1 tab PO DAILY 02/28/20 10/15/21 escitalopram oxalate 10 mg tablet 10 mg PO DAILY 04/10/20 10/15/21 (Lexapro) melatonin 5 mg tablet 10 mg PO HS PRN 04/10/20 10/15/21 lisdexamfetamine 10 mg capsule 10 mg PO DAILY 12/10/20 10/15/21 (Vyvanse) prochlorperazine maleate 5 mg 5 mg PO TID PRN nausea and 04/03/21 10/15/21 tablet headaches #30 tabs V-Hlstjf-V-Cysteine PO 07/16/21 07/16/21 PNV cmb#95-ferrous fumarate-FA PO 07/16/21 07/16/21 [ Multivitamins] cholecalciferol (vitamin D3) 125 125 mcg PO .Q OTHER DAY 07/16/21 10/15/21 mcg (5,000 unit) capsule cranberry extract PO PRN 07/16/21 07/16/21 galcanezumab-gnlm 120 mg/mL 120 mg subcut QMONTH 07/16/21 10/15/21 subcutaneous pen injector (Emgality Pen) magnesium oxide 400 mg (241.3 mg 400 mg PO BID 07/16/21 10/15/21 magnesium) tablet sumatriptan succinate [Imitrex subcut 07/16/21 07/16/21 STATdose Pen] tumeri PO 07/16/21 07/16/21 omeprazole 20 mg capsule,delayed 20 mg PO DAILY PRN Reflux #42 caps 08/20/21 10/15/21 release propranolol 10 mg tablet 10 mg PO BID #60 tabs 09/02/21 10/15/21 gabapentin 300 mg capsule See Rx Instructions PO QHS #90 caps 09/17/21 10/15/21 Previous Rx's Medication Instructions Recorded prochlorperazine maleate 5 mg 5 mg PO TID PRN nausea and 04/03/21 tablet headaches #30 tabs omeprazole 20 mg capsule,delayed 20 mg PO DAILY PRN Reflux #42 caps 08/20/21 release propranolol 10 mg tablet 10 mg PO BID #60 tabs 09/02/21 gabapentin 300 mg capsule See Rx Instructions PO QHS #90 caps 09/17/21 Allergies Allergy/AdvReac Type Severity Reaction Status Date / Time Penicillins Allergy Mild Verified 10/15/21 17:21 NSAIDS (Non-Steroidal AdvReac Mild neurology Unverified 10/15/21 17:21 Anti-Inflamma does not want her using nsaids General Stated Complaint: Dizzy/Sync DG: 3 PFSH All Active Problems (Updated 10/15/21 @ 21:09 by Jhoan Salvador MD) Dizziness (Acute) Frequent loose stools (Acute) Pharyngeal dysphagia (Acute) Dysfluency (Acute) COVID-19 long hauler (Acute) Chest pain (Acute) Speech and language disorder (Acute) Speech abnormality (Acute) Cognitive changes (Acute) Depression (Chronic) POTS (postural orthostatic tachycardia syndrome) (Acute) Frequent headaches (Acute) Medical History Anxiety Bronchitis Social History Smoking/Tobacco Use Status: Never Smoking risk assessment performed?: Yes Alcohol Intake: former Drug use: Occasionally Substance use type: marijuana Household members: significant other Housing: apartment Number of Children: 0 current occupation: unemployed Pets and animals: Yes Pets and animals: cat(s) and dog(s) What is your relationship status?: living with partner Panel score (0-1 are the most socially isolated patients): 1 What type of physical activity do you participate in: walking and yoga Seatbelt use: always Do you feel safe at home: Yes Do you feel safe in your relationship?: Yes Exam Const General: cooperative and no acute distress HENMT Mouth: mucous membranes dry Eyes Conjunctivae: normal conjunctivae Sclera: normal sclerae Neck Neck: trachea midline and supple Resp Auscultation: clear to auscultation bilaterally, no rales, no rhonchi and no wheezes Cardio Rate: regular rate and not tachycardic Rhythm: regular rhythm GI Palpation: soft, not firm, no guarding, no masses, not rigid and nontender Skin General skin exam: no rashes or lesions noted Neuro General: patient alert, patient awake, patient oriented x3 and tone normal Extrem General: no edema Psych Appearance: grossly normal Mental Status: mental status grossly normal Speech and Movement: speech and movement normal Course Vital Signs Vital signs: Vital Signs Temperature 36.9 C 10/15/21 17:18 Pulse 81 10/15/21 17:18 Respiratory Rate 18 10/15/21 17:18 Blood Pressure 107/63 10/15/21 17:18 Pulse Oximetry 99 10/15/21 17:18 Temperature 36.9 C 10/15/21 17:18 Temperature Source Skin 10/15/21 17:18 Pulse 81 10/15/21 17:18 Respiratory Rate 17 10/15/21 17:26 Respiratory Effort Non-Labored 10/15/21 17:26 Respiratory Depth Normal 10/15/21 17:26 Respiratory Pattern Normal 10/15/21 17:26 Blood Pressure 107/63 10/15/21 17:18 Blood Pressure Position Sitting 10/15/21 17:18 Pulse Oximetry 99 10/15/21 17:18 Oxygen Delivery Method Room Air 10/15/21 17:18 Oxygen Flow Rate 0 10/15/21 17:18 Pain Level 7 10/15/21 17:18
[2021-10-15 17:56] LABS: Abs Immature Grans 0.03 10^3/uL (0.0-0.06); Absolute Basophil Count 0.05 10^3/uL (0.0-0.2); Absolute Eosinophil Count 0.04 10^3/uL (0.0-0.7); Absolute Lymphocyte Count 1.29 10^3/uL (1.2-3.4); Absolute Monocyte Count 0.54 10^3/uL (0.1-0.8); Absolute Neutrophil Count 5.32 10^3/uL (1.2-6.7); Basophils % 0.7; Eosinophils % 0.6; HCT 38.6 % (36.0-46.0); HGB 13.2 g/dL (11.2-15.7); Immature Grans % 0.4; Lymphocytes % 17.7; MCH 31.9 pg (27.0-33.0); MCHC 34.2 % (32.0-36.0); MCV 93 fL (80-95); MPV 10.1 fL (8.0-11.0); Monocytes % 7.4; Neutrophils % 73.2; Platelet Count 242 10^3/uL (130-400); RBC 4.14 10^6/uL (3.93-5.22); RDW 11.2 % (11.7-14.6); RDW-SD 38.2 fL; WBC 7.27 10^3/uL (4.4-10.8)
[2021-10-15 18:30] LABS: ALT 19 U/L (14-59); AST 14 U/L (15-37); Alkaline Phosphatase 51 U/L (46-116); Anion Gap 4.5 mmol/L (3-11); BUN 13 mg/dL (7-18); Bilirubin, Total 0.4 mg/dL (0.2-1.0); CO2 28.5 mmol/L (21.0-32.0); CREATININE 0.9 mg/dL (0.55-1.02); Chloride 104 mmol/L (98-107); Glucose 106 mg/dL (74-106); Magnesium 1.9 mg/dL (1.8-2.4); Potassium 4.5 mmol/L (3.5-5.1); Sodium 137 mmol/L (136-145); Troponin I < 50 ng/L (<or=60)
== END 2021-10-15 21:28 | disposition home or self-care (01) ==
PROVIDERS: Emergency Provider Student in an Organized Health Care Education/Training Program; PCP Physician Assistant
DX: R42 Dizziness and giddiness (principal); R19.7 Diarrhea, unspecified; I49.9 Cardiac arrhythmia, unspecified
CPT/HCPCS: 80053; 93005; 96360; 99283; 83735; 84484; 85025; 93010; 99284

== ENCOUNTER 2022-09-08 15:12 | Outpatient (REF) | payer OTHER, SELFPAY ==
[2022-09-08 20:01] LABS: Bilirubin Negative (Negative); Blood Small (Negative); Clarity Clear (Clear); Glucose Negative (Negative); Ketones Negative (Negative); Leukocyte Esterase Negative (Negative); Nitrite Negative (Negative); Urobilinogen 0.2 mg/dL (Up to 0.2)
[2022-09-08 20:22] LABS: Bacteria Rare HPF (Negative); C & S Indicated? No; Casts Negative LPF (Negative); Crystals Negative HPF (Negative); Epithelial Cells Rare HPF (Negative); Mucus Negative (Negative); RBC 0-2 HPF (0-2); WBC Negative HPF (0-5)
== END 2022-09-08 15:13 | disposition home or self-care (01) ==
LOC: NCHCN 15:12
PROVIDERS: PCP Physician Assistant; Visit Provider Family Medicine
DX: R31.9 Hematuria, unspecified (principal); R30.0 Dysuria
CPT/HCPCS: 81003; 81015

== ENCOUNTER 2022-12-29 14:52 | Outpatient (REF) | payer OTHER, SELFPAY | END 2022-12-29 14:53 | disposition home or self-care (01) | LOC: LBN 14:52 | PROVIDERS: PCP Physician Assistant; Visit Provider Nurse Practitioner Women's Health | DX: N76.0 Acute vaginitis (principal) | CPT/HCPCS: 87480; 87510; 87660 ==